=== PATIENT | female | born 1980 | race Caucasian/White ===

== ENCOUNTER 2024-09-09 16:30 | Outpatient (CLI) | payer OTHER, SELFPAY | END 2024-09-09 16:31 | disposition home or self-care (01) | LOC: NFLDREF 16:31 | PROVIDERS: PCP Family Medicine; Visit Provider Registered Nurse | DX: N95.1 Menopausal and female climacteric states (principal); Z13.29 Encounter for screening for other suspected endocrine disorder | CPT/HCPCS: 84443 ==